=== PATIENT | female | born 1990 | race African-American/Black ===

== ENCOUNTER 2021-02-19 12:16 | Emergency (ER) | payer MEDICAID ==
[~2021-02-19] VITALS: Ht 157.5 cm; Wt 75.0 kg
[2021-02-19] MEDS ORDERED: DEXAMETHASONE 4MG TABLET PO ONE (13:00)
[2021-02-19] MEDS ORDERED: KETOROLAC 60MG/2ML VIAL IM ONE (13:00)
[2021-02-19] MEDS ORDERED: KETOROLAC 30MG/ML VIAL IM ONE (13:00)
[2021-02-19] MEDS ORDERED: AMOX-424 MT (13:01)
[2021-02-19] MEDS ORDERED: IBUP-2029 MT (13:02)
[2021-02-19 14:10] VITALS: BP 107/92
== END 2021-02-19 14:11 | disposition home or self-care (01) ==
LOC: ER 13:29
DX: J02.9 Acute pharyngitis, unspecified (principal); F41.9 Anxiety disorder, unspecified; J45.909 Unspecified asthma, uncomplicated; F32.9 Major depressive disorder, single episode, unspecified; Z98.890 Other specified postprocedural states; Z88.2 Allergy status to sulfonamides; Z20.822 Contact with and (suspected) exposure to COVID-19
CPT/HCPCS: 81025; 87070; 87426; 87430; 96372; 99283; J1885